=== PATIENT | male | born 1980 | race American Indian/Alaskan Native ===

== ENCOUNTER 2019-04-18 14:12 | Emergency (ER) | payer BC, OTHER ==
[2019-04-18] MEDS ORDERED: MVI, Adult with Vitamin K 10 ML, Thiamine 100 MG, Folic Acid 1 MG in Lactated Ringers 1... IV ONE ×4 (14:19)
[2019-04-18 14:28] VITALS: BP 113/36
--- NOTE | 2019-04-18 14:30 | EDM.PDOC ---
<Aisha Ansari - Last Filed: 04/18/19 18:44> ED HPI GENERAL MEDICAL PROBLEM - General Chief Complaint: Neuro Symptoms/Deficits Stated Complaint: UNKNOWN-AMBULANCE Time Seen by Provider: 04/18/19 14:15 Source of Information: Reports: Patient, EMS History Limitations: Reports: Altered Mental Status, Intoxication - History of Present Illness INITIAL COMMENTS - FREE TEXT/NARRATIVE: Patient arrives to ER after being found outside, had been outside throughout the night and into today. Patient is able to answer some questions, however is somewhat obtunded. Patient is able to verbalize to this keno writer / runner that he had been "Drinking beer last night and passed out". Patient does smell of alcohol. When asked about drug use, patient states "i don't do that stuff". Patient has multiple abrasions to bilateral shins, dried blood in bilateral nares, appears disheveled. Onset: Unknown/Unsure - Related Data Allergies Allergy/AdvReac Type Severity Reaction Status Date / Time No Known Allergies Allergy Verified 04/18/19 14:27 Home Meds: Home Meds Arginine [l-Arginine] 500 mg PO 09/16/18 [History] B 100 09/16/18 [History] Cayenne Pepper Caps 09/16/18 [History] Multivitamin [Multi-Vitamin Daily] 1 each PO 09/16/18 [History] Zinc Caps 09/16/18 [History] Past Medical History - Past Health History Medical/Surgical History: Denies Medical/Surgical History HEENT History: Reports: Impaired Vision Other HEENT History: wears corrective lenses Cardiovascular History: Reports: None Respiratory History: Reports: None Gastrointestinal History: Reports: None Genitourinary History: Reports: None Musculoskeletal History: Reports: None Neurological History: Reports: None Psychiatric History: Reports: Anxiety Endocrine/Metabolic History: Reports: None Hematologic History: Reports: None Immunologic History: Reports: None Oncologic (Cancer) History: Reports: None Dermatologic History: Reports: None - Infectious Disease History Infectious Disease History: Reports: Chicken Pox - Past Surgical History HEENT Surgical History: Reports: Oral Surgery Other HEENT Surgeries/Procedures: wisdom teeth extraction Social & Family History - Family History Family Medical History: Noncontributory - Caffeine Use Caffeine Use: Reports: Coffee ED ROS GENERAL - Review of Systems Review Of Systems: ROS reveals no pertinent complaints other than HPI. ED EXAM, NEURO - Physical Exam Exam: See Below Exam Limited By: Altered Mental Status General Appearance: No Apparent Distress, Obtunded Eye Exam: Bilateral Eye: EOMI, Normal Inspection, PERRL Ears: Normal External Exam, Normal Canal, Hearing Grossly Normal, Normal TMs Nose: Other (dried blood in bilateral nares, no soot noted in nares) Throat/Mouth: Normal Inspection, Normal Lips, Normal Teeth, Normal Gums, Normal Oropharynx, Normal Voice, No Airway Compromise, Other (blackened tounge, appears to be soil) Head Exam: Atraumatic, Normocephalic Neck: Normal Inspection, Supple, Non-Tender, Full Range of Motion Respiratory/Chest: No Respiratory Distress, Lungs Clear, Normal Breath Sounds, No Accessory Muscle Use, Chest Non-Tender Cardiovascular: Normal Peripheral Pulses, Regular Rate, Rhythm, No Edema, No Gallop, No JVD, No Murmur, No Rub GI/Abdominal: Normal Bowel Sounds, Soft, Non-Tender, No Distention, No Abnormal Bruit Neurological: CN II-XII Intact, Normal Reflexes, No Motor/Sensory Deficits. No : Oriented x 3 (patient obtunded, smells of alocohol) Back Exam: Normal Inspection, Full Range of Motion Extremities: Normal Range of Motion, Non-Tender, No Pedal Edema, Normal Capillary Refill. No: Normal Inspection (multiple abrasians noted to bilateral shins) Skin Exam: Warm, Dry, Normal Color. No: Intact (abrasions noted to bilateral lower extremities ) EKG INTERPRETATION EKG Date: 04/18/19 Time: 14:42 EKG Interpretation Comments: [id number] interpreted per Dr. Haines Course - Vital Signs Last Recorded V/S: Last Vital Signs Temp 99.5 F 04/18/19 14:28 Pulse 124 H 04/18/19 14:28 Resp 24 H 04/18/19 14:28 BP 113/36 L 04/18/19 14:28 Pulse Ox 90 L 04/18/19 14:28 - Orders/Labs/Meds Orders: Active Orders 24 hr Category Date Time Status Blood Glucose Check, Bedside [RC] ONETIME Care 04/18/19 14:18 Active EKG 12 Lead [EKG Documentation Completion] [RC] URGENT Care 04/18/19 14:18 Active Chest w Cont [CT] Urgent Exams 04/18/19 16:19 Taken Sodium Chloride 0.9% [Normal Saline] 1,000 ml Med 04/18/19 18:10 Active IV .BOLUS Medication Orders Sodium Chloride (Normal Saline) 1,000 mls @ 999 mls/hr IV .BOLUS ONE Stop: 04/18/19 19:10 Last Admin: 04/18/19 18:16 Dose: 999 mls/hr Labs: Laboratory Tests 04/18/19 04/18/19 04/18/19 Range/Units 14:25 15:21 15:21 WBC 16.2 H (5.0-10.0) 10^3/uL RBC 5.30 (4.6-6.2) 10^6/uL Hgb 16.8 (14.0-18.0) g/dL Hct 48.5 (40.0-54.0) % MCV 91.5 (80-100) fL MCH 31.7 (27.0-34.0) pg MCHC 34.6 (33.0-35.0) g/dL Plt Count 200 (150-450) 10^3/uL Neut % (Auto) 87.4 H (42.2-75.2) % Lymph % (Auto) 3.2 L (20.5-50.1) % Quay % (Auto) 9.3 H (2-8) % Eos % (Auto) 0.0 L (1.0-3.0) % Baso % (Auto) 0.1 (0.0-1.0) % D-Dimer, Quantitative (0-400) ng/mL Sodium 130 L (135-145) mmol/L Potassium 5.3 H (3.6-5.0) mmol/L Chloride 100 L (101-111) mmol/L Carbon Dioxide 11.0 L D (21.0-31.0) mmol/L Anion Gap 24.3 BUN 12 (7-18) mg/dL Creatinine 1.4 H (0.6-1.3) mg/dL Est Cr Clr Drug Dosing 72.94 mL/min Estimated GFR (MDRD) 57 BUN/Creatinine Ratio 8.57 Glucose 280 H (74-105) mg/dL POC Glucose 302 H (70-105) mg/dl Calcium 7.2 L D (8.4-10.2) mg/dl Total Bilirubin 0.7 (0.2-1.0) mg/dL AST 369 H (10-42) IU/L ALT 168 H (10-60) IU/L Alkaline Phosphatase 66 (42-121) IU/L Ammonia (11-35) umol/L Creatine Kinase TNP Troponin I (0.00-0.02) ng/ml Total Protein 6.4 L (6.7-8.2) g/dl Albumin 3.1 L (3.2-5.5) g/dl Globulin 3.3 Albumin/Globulin Ratio 0.94 Urine Color (YELLOW) Urine Appearance (CLEAR) Urine pH (5.0-9.0) Ur Specific [place] (1.005-1.030) Urine Protein (NEGATIVE) Urine Glucose (UA) (NEGATIVE) Urine Ketones (NEGATIVE) Urine Occult Blood (NEGATIVE) Urine Nitrite (NEGATIVE) Urine Bilirubin (NEGATIVE) Urine Urobilinogen (0.2-1.0) mg/dL Ur Leukocyte Esterase (NEGATIVE) Urine RBC /HPF Urine WBC (0-5/HPF) /HPF Ur Epithelial Cells (NOT SEEN) /HPF Urine Bacteria (0-FEW/HPF) /HPF Granular Casts (NOT SEEN) /LPF Fine Granular Casts (NOT SEEN) /LPF Urine Opiates Screen (NEGATIVE) Ur Oxycodone Screen (NEGATIVE) Urine Methadone Screen (NEGATIVE) Ur Propoxyphene Screen (NEGATIVE) Ur Methaqualone Screen (NEGATIVE) Ur Barbiturates Screen (NEGATIVE) Ur Tricyclics Screen (NEGATIVE) Ur Phencyclidine Scrn (NEGATIVE) Ur Amphetamine Screen (NEGATIVE) U Benzodiazepines Scrn (NEGATIVE) U Cocaine Metab Screen (NEGATIVE) U Marijuana (THC) Screen (NEGATIVE) Ethyl Alcohol 228 mg/dL 04/18/19 04/18/19 04/18/19 Range/Units 15:21 15:21 15:21 WBC (5.0-10.0) 10^3/uL RBC (4.6-6.2) 10^6/uL Hgb (14.0-18.0) g/dL Hct (40.0-54.0) % MCV (80-100) fL MCH (27.0-34.0) pg MCHC (33.0-35.0) g/dL Plt Count (150-450) 10^3/uL Neut % (Auto) (42.2-75.2) % Lymph % (Auto) (20.5-50.1) % Quay % (Auto) (2-8) % Eos % (Auto) (1.0-3.0) % Baso % (Auto) (0.0-1.0) % D-Dimer, Quantitative 3530 H (0-400) ng/mL Sodium (135-145) mmol/L Potassium (3.6-5.0) mmol/L Chloride (101-111) mmol/L Carbon Dioxide (21.0-31.0) mmol/L Anion Gap BUN (7-18) mg/dL Creatinine (0.6-1.3) mg/dL Est Cr Clr Drug Dosing mL/min Estimated GFR (MDRD) BUN/Creatinine Ratio Glucose (74-105) mg/dL POC Glucose (70-105) mg/dl Calcium (8.4-10.2) mg/dl Total Bilirubin (0.2-1.0) mg/dL AST (10-42) IU/L ALT (10-60) IU/L Alkaline Phosphatase (42-121) IU/L Ammonia 27 (11-35) umol/L Creatine Kinase Troponin I 0.02 (0.00-0.02) ng/ml Total Protein (6.7-8.2) g/dl Albumin (3.2-5.5) g/dl Globulin Albumin/Globulin Ratio Urine Color (YELLOW) Urine Appearance (CLEAR) Urine pH (5.0-9.0) Ur Specific [place] (1.005-1.030) Urine Protein (NEGATIVE) Urine Glucose (UA) (NEGATIVE) Urine Ketones (NEGATIVE) Urine Occult Blood (NEGATIVE) Urine Nitrite (NEGATIVE) Urine Bilirubin (NEGATIVE) Urine Urobilinogen (0.2-1.0) mg/dL Ur Leukocyte Esterase (NEGATIVE) Urine RBC /HPF Urine WBC (0-5/HPF) /HPF Ur Epithelial Cells (NOT SEEN) /HPF Urine Bacteria (0-FEW/HPF) /HPF Granular Casts (NOT SEEN) /LPF Fine Granular Casts (NOT SEEN) /LPF Urine Opiates Screen (NEGATIVE) Ur Oxycodone Screen (NEGATIVE) Urine Methadone Screen (NEGATIVE) Ur Propoxyphene Screen (NEGATIVE) Ur Methaqualone Screen (NEGATIVE) Ur Barbiturates Screen (NEGATIVE) Ur Tricyclics Screen (NEGATIVE) Ur Phencyclidine Scrn (NEGATIVE) Ur Amphetamine Screen (NEGATIVE) U Benzodiazepines Scrn (NEGATIVE) U Cocaine Metab Screen (NEGATIVE) U Marijuana (THC) Screen (NEGATIVE) Ethyl Alcohol mg/dL 04/18/19 04/18/19 04/18/19 Range/Units 17:09 17:10 17:39 WBC (5.0-10.0) 10^3/uL RBC (4.6-6.2) 10^6/uL Hgb (14.0-18.0) g/dL Hct (40.0-54.0) % MCV (80-100) fL MCH (27.0-34.0) pg MCHC (33.0-35.0) g/dL Plt Count (150-450) 10^3/uL Neut % (Auto) (42.2-75.2) % Lymph % (Auto) (20.5-50.1) % [place]ay % (Auto) (2-8) % Eos % (Auto) (1.0-3.0) % Baso % (Auto) (0.0-1.0) % D-Dimer, Quantitative (0-400) ng/mL Sodium 131 L (135-145) mmol/L Potassium 4.6 (3.6-5.0) mmol/L Chloride 101 (101-111) mmol/L Carbon Dioxide 14.0 L (21.0-31.0) mmol/L Anion Gap 20.6 BUN 14 (7-18) mg/dL Creatinine 1.4 H (0.6-1.3) mg/dL Est Cr Clr Drug Dosing 72.94 mL/min Estimated GFR (MDRD) 57 BUN/Creatinine Ratio Glucose 298 H (74-105) mg/dL POC Glucose (70-105) mg/dl Calcium 7.2 L (8.4-10.2) mg/dl Total Bilirubin (0.2-1.0) mg/dL AST (10-42) IU/L ALT (10-60) IU/L Alkaline Phosphatase (42-121) IU/L Ammonia (11-35) umol/L Creatine Kinase TNP Troponin I (0.00-0.02) ng/ml Total Protein (6.7-8.2) g/dl Albumin (3.2-5.5) g/dl Globulin Albumin/Globulin Ratio Urine Color Yellow (YELLOW) Urine Appearance Slightly cloudy (CLEAR) Urine pH 5.5 (5.0-9.0) Ur Specific [place] 1.015 (1.005-1.030) Urine Protein 100 H (NEGATIVE) Urine Glucose (UA) 500 H (NEGATIVE) Urine Ketones Negative (NEGATIVE) Urine Occult Blood Large H (NEGATIVE) Urine Nitrite Negative (NEGATIVE) Urine Bilirubin Negative (NEGATIVE) Urine Urobilinogen 0.2 (0.2-1.0) mg/dL Ur Leukocyte Esterase Negative (NEGATIVE) Urine RBC 5-10 H /HPF Urine WBC 5-10 H (0-5/HPF) /HPF Ur Epithelial Cells Few (NOT SEEN) /HPF Urine Bacteria Few (0-FEW/HPF) /HPF Granular Casts Few (NOT SEEN) /LPF Fine Granular Casts Few H (NOT SEEN) /LPF Urine Opiates Screen Negative (NEGATIVE) Ur Oxycodone Screen Negative (NEGATIVE) Urine Methadone Screen Negative (NEGATIVE) Ur Propoxyphene Screen Negative (NEGATIVE) Ur Methaqualone Screen Negative (NEGATIVE) Ur Barbiturates Screen Negative (NEGATIVE) Ur Tricyclics Screen Negative (NEGATIVE) Ur Phencyclidine Scrn Negative (NEGATIVE) Ur Amphetamine Screen 1.015 (NEGATIVE) U Benzodiazepines Scrn Negative (NEGATIVE) U Cocaine Metab Screen Negative (NEGATIVE) U Marijuana (THC) Screen Negative (NEGATIVE) Ethyl Alcohol mg/dL Meds: Medications Generic Name Dose Route Start Last Admin Trade Name Freq PRN Reason Stop Dose Admin Sodium Chloride 1,000 mls @ 999 mls/hr 04/18/19 18:10 04/18/19 18:16 Normal Saline IV 04/18/19 19:10 999 mls/hr .BOLUS ONE Administration Discontinued Medications Generic Name Dose Route Start Last Admin Trade Name Freq PRN Reason Stop Dose Admin Bacitracin 1 dose 04/18/19 15:33 04/18/19 16:23 Bacitracin Oint 1 Gm TOP 04/18/19 15:34 1 dose ONETIME ONE Administration Multivitamins/Minerals 10 ml/ 1,011.2 mls @ 999 mls/hr 04/18/19 14:19 14:58 Thiamine HCl 100 mg/ Folic IV 04/18/19 15:19 999 mls/hr Acid 1 mg/ Lactated Ringer's .BOLUS ONE Administration Sodium Chloride 1,000 mls @ 999 mls/hr 04/18/19 16:10 04/18/19 16:25 Normal Saline IV 04/18/19 17:10 999 mls/hr .BOLUS ONE Administration Iopamidol 100 ml 04/18/19 16:11 04/18/19 17:06 [id number] (76%) IVPUSH 04/18/19 16:12 95 ml ONETIME ONE Administration Naloxone HCl 2 mg 04/18/19 14:43 04/18/19 14:50 Narcan IVPUSH 04/18/19 14:44 2 mg ONETIME ONE Administration Naloxone HCl Confirm 04/18/19 14:45 04/18/19 14:59 Narcan Administered 04/18/19 14:46 Not Given Dose 2 mg .ROUTE .STK-MED ONE - Radiology Interpretation Free Text/Narrative:: No acute findings found on head CT, see rad report. Chest CT findings: thickening of the esophagus, most likely esophagitis. Infiltrative process not excluded. Hepatic steatosis. See rad report. - Re-Assessments/Exams Free Text/Narrative Re-Assessment/Exam: Patient given 2mg IVP Narcan with no response. 04/18/19 1450 Elevated D-dimer 3530, PE study ordered. 04/18/19 16:14 Patient's bilateral lower legs cleansed, Bacitracin applied, covered wit non- adherant telfa, and wrapped with kerlix. Patient has developed complaints of RLE numbness and pain to the hip/femur region. There is no pain with palpation of the hip. There is no evidence of trauma or injury to this region. Patient denies any sensation to the right foot with both soft and sharp touch. Patient reports that he is unable to demonstrate flexion and extension of this leg. Post-tib and dorsalis pedis pulses are intact, +3. Head CT was negative, see rad report. 04/18/19 17:43 Departure - Departure Time of Disposition: 18:45 Disposition: DC/Tfer to [facility] 02 Clinical Impression: Weakness of right lower extremity, Dehydration Rhabdomyolysis Qualifiers: Rhabdomyolysis type: non-traumatic Qualified Code(s): M62.82 - Rhabdomyolysis Alcohol intoxication Qualifiers: Complication of substance-induced condition: with unspecified complication Qualified Code(s): F10.929 - Alcohol use, unspecified with intoxication, unspecified - Discharge Information *PRESCRIPTION DRUG MONITORING PROGRAM REVIEWED*: No *COPY OF PRESCRIPTION DRUG MONITORING REPORT IN PATIENT JAYLIN: No Instructions: Rhabdomyolysis Referrals: PCP,None [Primary Care Provider] - Forms: ED Department Discharge, Interfacility Transfer EMTALA Additional Instructions: Transfer to [facility] for further care of rhabdomyolosis. <Brandon Haines - Last Filed: 04/18/19 18:52> Course - Re-Assessments/Exams Free Text/Narrative Re-Assessment/Exam: 04/18/19 18:50 I personally performed or re-performed the physical examination and medical decision making. I have verified all student documentation or findings, including history, physical exam and/or medical decision making.
[2019-04-18] MEDS ORDERED: Naloxone 2 MG/2 ML Syringe IVPUSH ONE (14:43)
[2019-04-18] MEDS ORDERED: Naloxone 2 MG/2 ML Syringe ONE (14:45)
--- NOTE | 2019-04-18 14:50 | CT ---
Clinical history: 38-year-old inebriated (intoxicated) male found unresponsive "in a field". Scan technique: Volume acquisition of data emergency unenhanced CT scan of the head and brain obtained with the patient lying supine on the Siemens multi slice scanner [place], [place]. All data archived in the PACS system for storage, reformatting axial/sagittal/coronal planes and study (bone/brain windows). Some positional artifact. Interpretation: Sinusitis. No sign of skull fracture or closed head trauma. 1. Uniformly thick bony calvarium without sign of skull fracture, underlying brain contusion or epidural/subdural hematoma. 2. Ethmoiditis. Mild mucoperiosteal thickening of the maxillary antra. Frontal, sphenoid and mastoid sinuses clear. 3. No supratentorial or posterior fossa mass lesion. No hydrocephalus. 4. No pathologic and cranial calcification, arachnoid cyst, supratentorial or posterior fossa mass lesion. 5. Cerebellum and brainstem unremarkable. 6. No ischemic infarcts or signs of acute intracerebral/intraventricular/subarachnoid bleed.
[2019-04-18] MEDS ORDERED: Bacitracin Oint 1 GM U/D Packet TOP ONE (15:33)
[2019-04-18 15:59] LABS: ANION GAP 24.3
[2019-04-18] MEDS ORDERED: Sodium Chloride 0.9% 1,000 ML IV ONE ×2 (16:10→18:10)
[2019-04-18] MEDS ORDERED: Iopamidol 755 Mg/ML 100 ML Bottle IVPUSH ONE (16:11)
[2019-04-18 18:10] LABS: ANION GAP 20.6
--- NOTE | 2019-04-18 18:23 | CR ---
Clinical history: 38-year-old male injured right knee. Interpretation: (4 views) chronic hypertrophic arthritis i.e. bony spurs involving the intercondylar tibial spines, margin of the left and patellofemoral surface of the right patella. Homogeneous normal bone density. No sign of right knee joint effusion, fracture, dislocation or radiopaque loose joint body. Reactive sclerosis and marginal spur formation patellofemoral surface of the right patella. No foreign bodies. CONCLUSION: Arthritis. No fracture or dislocation right knee.
== END 2019-04-18 19:13 ==
LOC: DL.ED 14:12
DX: F10.929 Alcohol use, unspecified with intoxication, unspecified (principal); M62.82 Rhabdomyolysis; E86.0 Dehydration; R79.1 Abnormal coagulation profile; Y90.7 Blood alcohol level of 200-239 mg/100 ml
CPT/HCPCS: 36415; 70450; 71260; 73560-RT; 80048; 80053; 80305-QW; 81001; 82140; 82550; 82962; 84484; 85025; 85379; 93005; 96361; 96365; 96375; 99285-25; G0480; J2310; J3411; J3490; J7030; J7120; Q9967

== ENCOUNTER 2024-03-06 16:48 | Emergency (ER) | payer BC, OTHER ==
[2024-03-06 18:28] VITALS: BP 158/111; PULSE 107
== END 2024-03-06 18:46 | disposition home or self-care (01) ==
LOC: DL.ED 16:48
DX: H10.9 Unspecified conjunctivitis (principal); Z79.84 Long term (current) use of oral hypoglycemic drugs; Z79.899 Other long term (current) drug therapy
CPT/HCPCS: 99282